=== PATIENT | female | born 1995 | race Caucasian/White ===

== ENCOUNTER 2018-01-16 01:33 | Inpatient (IN) | payer BC ==
[2018-01-16] MEDS ORDERED: Acetaminophen 325 MG Tab PO PRN (07:52)
[2018-01-16] MEDS ORDERED: Ondansetron 4 MG/2 ML SDV IVPUSH PRN (07:52)
[2018-01-16] MEDS ORDERED: Sodium Chloride 0.9% 10 ML Syringe FLUSH PRN (07:52)
[2018-01-16] MEDS ORDERED: Oxytocin/Lactated Ringers 10 UNIT/1,000 ML BAG IV SCH (08:00)
--- NOTE | 2018-01-16 08:03 | PCM.LDHP ---
L&D History of Present Illness - General Date of Service: 01/16/18 Admit Problem/Dx: Patient Status Order with Admit Dx/Problem 01/16/18 07:52 Patient Status [ADT] Routine Admission Diagnosis/Problem Admission Diagnosis/Problem 40 weeks gestation of Source of Information: Patient History Limitations: Reports: No Limitations - History of Present Illness Introduction:: Maddie Boss is a 22 year old at 40 weeks 1 day by LMP consistent with 9 week ultrasound who presents for induction of labor. Denies any significant complications and she was last seen by Dr. Ramírez her regular OB/ REGULATORY INTERN physician. She denies any leaking of fluid or vaginal bleeding. Reports she has been having normal, physiologic discharge. Reports that she does have occasional Hinds Escalante contractions but nothing regular or very painful. Reports good movement. Reports that she has been checking her blood sugars and that they have overall been normal with the occasional abnormal value. She has continued to have good control of her gestational diabetes with diet control. Present Illness Comments:: Maddie Boss is a 22-year-old at 40 weeks and 1 day by LMP consistent with 9 week ultrasound. She has had routine care with Dr. Ramírez starting at 9 weeks gestation. Her initial labs on 06/17/2017 showed a positive blood type with negative antibody screen. Rubella immune. RPR nonreactive. Hepatitis B and HIV negative. Gonorrhea and chlamydia were negative. Her hematocrit was 39.7 and hemoglobin was 13.7. Her platelets were 388. On initial ultrasound on 08/29/2017 for anatomy scan and there was noted to be an echogenic locus within the heart that was present on second ultrasound. She declined any additional genetic evaluation. Her one-hour glucose test was 184 and had a 3 hour glucose test done on 11/07/2017 with values of fasting 96, 1 hour 196, 2 hour 148, 3 hour 90. She was diagnosed with gestational diabetes based on these values and was able to be controlled using diet throughout the . Her hematocrit on 10/15/2017 was 34.6 and hemoglobin was 11.5. Her platelets were 342. She was GBS negative. She was followed through [facility] by Dr. Ramírez. She received flu vaccine on 09/10/2017 and TDaP vaccine on 11/05/2017. She plans to breast-feed after delivery and is okay with an epidural during labor. 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: Endocrine/Metabolic History: Reports: Diabetes, Gestational - Past Surgical History GI Surgical History: Reports: Appendectomy Social & Family History - Family History Family Medical History: Noncontributory - Tobacco Use Smoking Status *Q: Never Smoker - Alcohol Use Alcohol Use History: No - Recreational Drug Use Recreational Drug Use: No - Sexual History Sexual History: Reports: Single Partner H&P Review of Systems - Review of Systems: Review Of Systems: See Below General: Denies: Fever, Chills, Malaise HEENT: Denies: Headaches, Sinus Congestion, Sore Throat, Visual Changes Pulmonary: Denies: Shortness of Breath, Cough Cardiovascular: Denies: Chest Pain, Palpitations, Dyspnea on Exertion Gastrointestinal: Denies: Abdominal Pain, Constipation, Diarrhea Genitourinary: Denies: Dysuria, Frequency, Burning, Urgency Musculoskeletal: Denies: Joint Pain, Muscle Pain Skin: Denies: Rash, Lesions Psychiatric: Denies: Depression, Anxiety Neurological: Denies: Headache Hematologic/Lymphatic: Denies: Easy Bleeding, Easy Bruising L&D Exam - Exam Exam: See Below - OB Specific Contraction Intensity: Irritability Movement: Active Heart Tones: Present Heart Tones per Min: 145 (Positive accelerations, no decelerations) Heart Rate (FHR) Variability: Moderate (6-25 bmp) Presentation: Vertex (By cervical exam) Estimated Weight: 7.5 pounds by Gabriel's - Rothman Score Rothman Score Cervix Position: Midposition Rothman Score Consistency: Medium Rothman Score Effacement: 31-50% Rothman Score Dilation: 3-4 cm Rothman Score Infant's Station: -3 Rothman Score Total: 5 - Exam General: Alert, Oriented HEENT: Conjunctiva Clear, EOMI Neck: Supple, Trachea Midline Lungs: Clear to Auscultation, Normal Respiratory Effort Cardiovascular: Regular Rate, Regular Rhythm GI/Abdominal Exam: Soft, Non-Tender, No Distention, Other (Gravid). No: Guarding, Rebound Genitourinary: Normal external exam Back Exam: Full Range of Motion Extremities: Normal Inspection, Pedal Edema (1+ to mid shins in lower extremities bilaterally) Skin: Warm, Dry, Intact Psychiatric: Alert, Normal Affect, Normal Mood - Problem List (1) 40 weeks gestation of SNOMED Code(s): 46989405 ICD Code: Z3A.40 - 40 WEEKS GESTATION OF Status: Acute Current Visit: Yes (2) Gestational diabetes SNOMED Code(s): 46280340 ICD Code: O24.419 - GESTATIONAL DIABETES MELLITUS IN , UNSP CONTROL Status: Acute Current Visit: Yes (3) Abnormal ultrasonic finding on screening of mother Status: Acute Current Visit: Yes Problem List Initiated/Reviewed/Updated: Yes Orders Last 24hrs: Active Orders 24 hr Category Date Time Status Patient Status [ADT] Routine ADT 01/16/18 07:52 Ordered Activity as Tolerated [RC] PFP Care 01/16/18 07:52 Ordered Blood Glucose Check, Bedside [RC] Q4HR Care 01/16/18 07:55 Ordered Communication Order [RC] ASDIRECTED Care 01/16/18 07:52 Ordered Heart Tones [RC] ASDIRECTED Care 01/16/18 07:53 Ordered Notify Provider Vital Signs [RC] PRN Care 01/16/18 07:54 Ordered Notify Provider [RC] PFP Care 01/16/18 07:52 Ordered Notify Provider [RC] PRN Care 01/16/18 07:52 Ordered Peripheral IV Care [RC] . DIRECTED Care 01/16/18 07:53 Ordered Pump Management, Intrathecal [RC] ASDIRECTED Care 01/16/18 07:54 Ordered Urinary Catheter Assessment [RC] ASDIRECTED Care 01/16/18 07:52 Ordered Vital Signs [RC] PER UNIT ROUTINE Care 01/16/18 07:52 Ordered Clear Liquid Diet [DIET] Diet 01/16/18 Breakfast Ordered CBC W/O DIFF,HEMOGRAM [HEME] Routine Lab 01/16/18 07:52 Ordered Acetaminophen [Tylenol] Med 01/16/18 07:52 Ordered 650 mg PO Q6H PRN Lactated Ringers [Ringers, Lactated] 1,000 ml Med 01/16/18 08:00 Ordered IV ASDIRECTED Ondansetron [Zofran] Med 01/16/18 07:52 Ordered 4 mg IVPUSH Q4H PRN Oxytocin/Lactated Ringers [Pitocin in LR 10 Units/1,000 Med 01/16/18 08:00 Ordered ML] 10 unit in 1,000 ml IV .CONTINUOUS Oxytocin/Lactated Ringers [Pitocin in LR 10 Units/1,000 Med 01/16/18 08:00 Ordered ML] 10 unit in 1,000 ml IV TITRATE Sodium Chloride 0.9% [Saline Flush] Med 01/16/18 07:52 Ordered 10 ml FLUSH ASDIRECTED PRN Electronic Heart Tones Ext w TOCO [WOMSER] Ot 01/16/18 07:52 Ordered Routine Electronic Heart Tones Internal [WOMSER] Per Unit Ot 01/16/18 07:52 Ordered Routine Peripheral IV Insertion Adult [OM.PC] Routine Ot 01/16/18 07:52 Ordered Resuscitation Status Routine Resus Stat 01/16/18 07:52 Ordered Assessment/Plan Comment:: Refer to observation for elective induction of labor Start induction of labor with Pitocin and increase per unit protocol Continuous monitoring Place IV and have Lactated Ringer's at 125 ml/hr May have small amounts of regular diet and clear liquids while on Pitocin induction Activity as tolerated May have epidural as desired Check fingerstick blood glucose levels every 4 hours before active labor and check every 2 hours once in active labor. Plan to start insulin drip as indicated. Plans to breast-feed after delivery Anticipate vaginal delivery unless otherwise indicated
[2018-01-16] MEDS: Oxytocin/Lactated Ringers 10 UNIT/1,000 ML BAG IV SCH ×2 (08:25→23:40)
[2018-01-16] MEDS: Lactated Ringers 1,000 ML IV SCH ×4 (08:27→20:22)
--- NOTE | 2018-01-16 09:58 | PCM.PREANE ---
Preanesthetic Assessment - Anesthesia/Transfusion/Family Hx Anesthesia History: Prior Anesthesia Without Reaction Type of Anesthesia Reaction: Other (see below) (nausea) Family History of Anesthesia Reaction: No Transfusion History: No Prior Transfusion(s) - Review of Systems General: No Symptoms Pulmonary: No Symptoms Cardiovascular: No Symptoms Gastrointestinal: No Symptoms, Nausea (yesterday), Vomiting (yesterday) Neurological: No Symptoms Other: Reports: Diabetes (gestational) - Physical Assessment Respiratory Rate: 18 Vital Signs: Last Vital Signs Temp 98.0 F 01/16/18 07:52 Pulse 84 01/16/18 07:52 Resp 18 01/16/18 07:52 BP 136/74 01/16/18 07:52 Pulse Ox Height: 5 ft 5 in Weight: 85.729 kg ASA Class: 2 Mental Status: Alert & Oriented x3 Airway Class: Mallampati = 1 Dentition: Reports: Normal Dentition Thyro-Mental Finger Breadths: 3 Mouth Opening Finger Breadths: 3 ROM/Head Extension: Full Lungs: Clear to Auscultation, Normal Respiratory Effort Cardiovascular: Regular Rate, Regular Rhythm - Lab Values: Laboratory Last Values WBC 14.61 K/mm3 (3.98-10.04) H 01/16/18 09:10 RBC 4.41 M/mm3 (3.98-5.22) 01/16/18 09:10 Hgb 12.2 gm/L (11.2-15.7) 01/16/18 09:10 Hct 37.3 % (34.1-44.9) 01/16/18 09:10 MCV 84.6 fl (79.4-94.8) 01/16/18 09:10 MCH 27.7 pg (25.6-32.2) 01/16/18 09:10 MCHC 32.7 g/dl (32.2-35.5) 01/16/18 09:10 RDW Std Deviation 44.8 fL (36.4-46.3) 01/16/18 09:10 Plt Count 316 K/mm3 (182-369) 01/16/18 09:10 MPV 10.0 fl (9.4-12.3) 01/16/18 09:10 POC Glucose 69 mg/dL (70-105) L 01/16/18 09:03 - Allergies Allergies/Adverse Reactions: Allergies Allergy/AdvReac Type Severity Reaction Status Date / Time No Known Allergies Allergy Verified 01/16/18 07:52 - Blood Blood Available: No - Acknowledgements Anesthesia Type Planned: Epidural Pt an Appropriate Candidate for the Planned Anesthesia: Yes Alternatives and Risks of Anesthesia Discussed w Pt/Guardian: Yes Pt/Guardian Understands and Agrees with Anesthesia Plan: Yes PreAnesthesia Questionnaire Cardiovascular History: Reports: None Respiratory History: Reports: None Gastrointestinal History: Reports: GERD (little with preg) PARER History: Reports: : 1 (40 weeks) Para: 0 Endocrine/Metabolic History: Reports: Diabetes, Gestational - Past Surgical History GI Surgical History: Reports: Appendectomy - SUBSTANCE USE Smoking Status *Q: Never Smoker Tobacco Use Within Last Twelve Months: No Second Hand Smoke Exposure: No Days Per Week of Alcohol Use: 0 Recreational Drug Use History: No - HOME MEDS Home Medications: Home Meds Ferrous Sulfate [Iron] 1 tab PO DAILY 01/16/18 [History] Vits #93/Iron Fum/FA [ Formula Tablet] 1 tab PO DAILY 01/16/18 [History] - CURRENT (IN HOUSE) MEDS Current Meds: Current Medications Acetaminophen (Tylenol) 650 mg PO Q6H PRN PRN Reason: Pain (Mild 1-3) and fever Lactated Ringer's (Ringers, Lactated) 1,000 mls @ 100 mls/hr IV ASDIRECTED PENG Last Admin: 01/16/18 08:27 Dose: 100 mls/hr Oxytocin/Lactated Ringer's (Pitocin In Lr 10 Units/1,000 Ml) 10 unit in 1,000 mls @ 100 mls/hr IV .CONTINUOUS PENG Oxytocin/Lactated Ringer's (Pitocin In Lr 10 Units/1,000 Ml) 10 unit in 1,000 mls @ 12 mls/hr IV TITRATE PENG; 2 MUNITS/MIN PRN Reason: Protocol Last Admin: 01/16/18 08:25 Dose: 2 munits/min, 12 mls/hr Ondansetron HCl (Zofran) 4 mg IVPUSH Q4H PRN PRN Reason: Nausea/Vomiting Sodium Chloride (Saline Flush) 10 ml FLUSH ASDIRECTED PRN PRN Reason: Keep Vein Open
[2018-01-16] MEDS ORDERED: diphenhydrAMINE 50 MG/ML SDV IVPUSH PRN (09:59)
[2018-01-16] MEDS ORDERED: fentaNYL 100 MCG/2 ML SDV EPIDUR PRN (09:59)
[2018-01-16] MEDS ORDERED: ePHEDrine 50 MG/ML SDV IVPUSH PRN (09:59)
[2018-01-16] MEDS ORDERED: Bupivacaine/fentaNYL/NS 100 ML Bag EPIDUR SCH (10:00)
--- NOTE | 2018-01-16 18:25 | PCM.PNLD ---
Labor Progress Note - VS & Meds Vital Signs: Last Vital Signs Temp 36.7 C 01/16/18 07:52 Pulse 84 01/16/18 07:52 Resp 18 01/16/18 09:58 BP 136/74 01/16/18 07:52 Pulse Ox Active Medications: Current Medications Acetaminophen (Tylenol) 650 mg PO Q6H PRN PRN Reason: Pain (Mild 1-3) and fever Diphenhydramine HCl (Benadryl) 25 mg IVPUSH Q6H PRN PRN Reason: pruritis Ephedrine Sulfate (Ephedrine Sulfate) 5 mg IVPUSH ASDIRECTED PRN PRN Reason: Hypotension Fentanyl (Sublimaze) 100 mcg EPIDUR Q3H PRN PRN Reason: Pain Fentanyl/Bupivacaine HCl (Fentanyl/Bupivacaine/Ns 2 Mcg-0.125% 100 Ml) 100 ml EPIDUR ASDIRECTED PENG Lactated Ringer's (Ringers, Lactated) 1,000 mls @ 100 mls/hr IV ASDIRECTED PENG Last Admin: 01/16/18 16:10 Dose: 100 mls/hr Oxytocin/Lactated Ringer's (Pitocin In Lr 10 Units/1,000 Ml) 10 unit in 1,000 mls @ 100 mls/hr IV .CONTINUOUS PENG Oxytocin/Lactated Ringer's (Pitocin In Lr 10 Units/1,000 Ml) 10 unit in 1,000 mls @ 12 mls/hr IV TITRATE PENG; 2 MUNITS/MIN PRN Reason: Protocol Last Titration: 01/16/18 16:12 Dose: 18 munits/min, 108 mls/hr Ondansetron HCl (Zofran) 4 mg IVPUSH Q4H PRN PRN Reason: Nausea/Vomiting Sodium Chloride (Saline Flush) 10 ml FLUSH ASDIRECTED PRN PRN Reason: Keep Vein Open - Uterine Contractions Uterine Monitoring Mode: External [place] Contraction Frequency (min): 2-3 Contraction Duration (sec): 60 Contraction Intensity: Moderate to Strong Uterine Resting Tone: Soft - Monitoring Monitor Mode: External Ultrasound Heart Rate (FHR) Baseline: 130 Heart Rate (FHR) Variability: Moderate (6-25 bmp) Accelerations: Present, 15x15 Decelerations: None Strip Review: Category I - Vaginal Exam Dilation (cm): 4.5 Effacement (Percent): 80 Station: -3 Cervical Position: Midposition Sterile Vaginal Exam Performed By: Solomon Augustin - Labor Progress (Free Text) Labor Progress: Patient with cervical dilation to 4.5 cm. artificial rupture membranes performed with return of clear fluid. Mom and baby tolerated without difficulty. Continue with Pitocin for augmentation of labor. Patient may ambulate after reassuring monitoring. Continue to check fingerstick blood glucose levels every 4 hours until patient is 6-7 cm. At that time decreased time between checks to every 2 hours. Anticipate vaginal delivery unless otherwise indicated
[2018-01-16] MEDS ORDERED: Bupivacaine 0.25% 10 ML SDV ONE (22:22)
--- NOTE | 2018-01-17 02:17 | PCM.DEL ---
L & D Note - General Info Date of Service: 01/17/18 Mother's Due Date: 01/15/18 - Delivery Note Labor: Augmented by ARM (clear fluids with AROM), Augmented by Oxytocin, Induced by Oxytocin Delivery Outcome: Livebirth Delivery Method: Spontaneous Vaginal Delivery-Single Presentation: Direct occiput anterior Nuchal Cord: Present, Reduced (after delivery of infant) Prep: Povidone-Iodine (Betadine Anesthesia Type: Epidural Amniotic Fluid Description: Clear Episiotomy Type: None Laceration: 1st Degree, Perineal (midline) Suture type: Vicryl Suture size: 3-0 Placenta: Intact, Spontaneous Cord: 3 Vessels Estimated Blood Loss: 350 Resuscitation Needed: No : Bulb Syringe, Stimulated, Warmed, [place] Used Provider: Markus Ramírez Score 1 min: 9 Score 5 min: 9 Second Stage Interventions: Reports: Pushing Effectively, Pushing, Pulls Own Legs Back Delivery Comments (Free Text/Narrative):: Stage I: Maddie Boss was admitted for elective induction of labor. On admission her cervix was dilated to 2 cm. She was GBS negative. She was started on Pitocin for induction of labor. She had artificial rupture membranes with clear fluid. She was given an epidural for anesthesia. She had fingerstick blood glucose levels checked throughout the laboring process and she had one mildly elevated value to 133 approximately 1 hour after a meal. Other values were within normal limits. She progressed to complete and pushing. Stage II: On 01/17/2018 she had a normal vaginal delivery of a live female at 0133. Apgars of 9 and 9. Weight of 3360 g (7 lbs 7 oz). Length of 20.5 inches. There was single nuchal cord that was reduced after delivery of the . was delivered in direct occiput anterior position. The cord was doubly clamped and cut by father of . was placed on mother's abdomen. Stage III: She had a spontaneous delivery of an intact placenta in Jack presentation. Three vessel cord. She was given pitocin and fundal massage. She had a first-degree midline perineal laceration that was repaired with 3-0 Vicryl. Mom and baby were stable to recovery. EBL of 350 mL. Solomon Augustin MD 2:17 AM 01/17/2018 - Patient Data Vitals - Most Recent: Last Vital Signs Temp 36.7 C 01/16/18 07:52 Pulse 66 01/16/18 20:30 Resp 18 01/16/18 09:58 BP 117/68 01/16/18 20:30 Pulse Ox 100 01/16/18 18:53 Weight - Most Recent: 85.729 kg I&O - Last 24 Hours: Intake & Output 01/16/18 01/16/18 01/17/18 14:59 22:59 06:59 Intake Total 0 Balance 0 Lab Results Last 24 Hours: Laboratory Results - last 24 hr 01/16/18 01/16/18 01/16/18 Range/Units 09:03 09:10 13:01 WBC 14.61 H (3.98-10.04) K/mm3 RBC 4.41 (3.98-5.22) M/mm3 Hgb 12.2 (11.2-15.7) gm/L Hct 37.3 (34.1-44.9) % MCV 84.6 (79.4-94.8) fl MCH 27.7 (25.6-32.2) pg MCHC 32.7 (32.2-35.5) g/dl RDW Std Deviation 44.8 (36.4-46.3) fL Plt Count 316 (182-369) K/mm3 MPV 10.0 (9.4-12.3) fl POC Glucose 69 L 74 (70-105) mg/dL 01/16/18 01/16/18 Range/Units 17:23 20:47 WBC (3.98-10.04) K/mm3 RBC (3.98-5.22) M/mm3 Hgb (11.2-15.7) gm/L Hct (34.1-44.9) % MCV (79.4-94.8) fl MCH (25.6-32.2) pg MCHC (32.2-35.5) g/dl RDW Std Deviation (36.4-46.3) fL Plt Count (182-369) K/mm3 MPV (9.4-12.3) fl POC Glucose 133 H 82 (70-105) mg/dL Med Orders - Current: Current Medications Acetaminophen (Tylenol) 650 mg PO Q6H PRN PRN Reason: Pain (Mild 1-3) and fever Diphenhydramine HCl (Benadryl) 25 mg IVPUSH Q6H PRN PRN Reason: pruritis Ephedrine Sulfate (Ephedrine Sulfate) 5 mg IVPUSH ASDIRECTED PRN PRN Reason: Hypotension Fentanyl (Sublimaze) 100 mcg EPIDUR Q3H PRN PRN Reason: Pain Last Admin: 01/16/18 19:09 Dose: 100 mcg Fentanyl/Bupivacaine HCl (Fentanyl/Bupivacaine/Ns 2 Mcg-0.125% 100 Ml) 100 ml EPIDUR ASDIRECTED PENG Last Admin: 01/16/18 19:09 Dose: 100 ml Lactated Ringer's (Ringers, Lactated) 1,000 mls @ 100 mls/hr IV ASDIRECTED PENG Last Admin: 01/16/18 20:22 Dose: 125 mls/hr Oxytocin/Lactated Ringer's (Pitocin In Lr 10 Units/1,000 Ml) 10 unit in 1,000 mls @ 100 mls/hr IV .CONTINUOUS PENG Oxytocin/Lactated Ringer's (Pitocin In Lr 10 Units/1,000 Ml) 10 unit in 1,000 mls @ 12 mls/hr IV TITRATE PENG; 2 MUNITS/MIN PRN Reason: Protocol Last Admin: 01/16/18 23:40 Dose: 14 munits/min, 84 mls/hr Ondansetron HCl (Zofran) 4 mg IVPUSH Q4H PRN PRN Reason: Nausea/Vomiting Last Admin: 01/16/18 21:01 Dose: 4 mg Sodium Chloride (Saline Flush) 10 ml FLUSH ASDIRECTED PRN PRN Reason: Keep Vein Open - Problem List & Annotations (1) 40 weeks gestation of SNOMED Code(s): 04121453 Code(s): Z3A.40 - 40 WEEKS GESTATION OF Status: Acute Current Visit: Yes (2) Gestational diabetes SNOMED Code(s): 03931135 Code(s): O24.419 - GESTATIONAL DIABETES MELLITUS IN , UNSP CONTROL Status: Acute Current Visit: Yes (3) Abnormal ultrasonic finding on screening of mother Status: Acute Current Visit: Yes (4) Vaginal delivery SNOMED Code(s): 458832864 Code(s): O80 - ENCOUNTER FOR FULL-TERM UNCOMPLICATED DELIVERY Status: Acute Current Visit: Yes (5) First degree laceration of perineum, delivered, current hospitalization SNOMED Code(s): 724887699 Code(s): O70.0 - FIRST DEGREE PERINEAL LACERATION DURING DELIVERY Status: Acute Current Visit: Yes - Problem List Review Problem List Initiated/Reviewed/Updated: Yes - My Orders Last 24 Hours: My Active Orders 01/16/18 07:52 Patient Status [ADT] Routine Activity as Tolerated [RC] PFP Communication Order [RC] ASDIRECTED Notify Provider [RC] PFP Notify Provider [RC] PRN Urinary Catheter Assessment [RC] ASDIRECTED Vital Signs [RC] PER UNIT ROUTINE Acetaminophen [Tylenol] 650 mg PO Q6H PRN Ondansetron [Zofran] 4 mg IVPUSH Q4H PRN Sodium Chloride 0.9% [Saline Flush] 10 ml FLUSH ASDIRECTED PRN Electronic Heart Tones Ext w TOCO [WOMSER] Routine Electronic Heart Tones Internal [WOMSER] Per Unit Routine Peripheral IV Insertion Adult [OM.PC] Routine Resuscitation Status Routine 01/16/18 07:53 Heart Tones [RC] ASDIRECTED Peripheral IV Care [RC] Q2HR 01/16/18 07:54 Notify Provider Vital Signs [RC] PRN 01/16/18 07:55 Blood Glucose Check, Bedside [RC] Q4HR 01/16/18 08:00 Lactated Ringers [Ringers, Lactated] 1,000 ml IV ASDIRECTED Oxytocin/Lactated Ringers [Pitocin in LR 10 Units/1,000 ML] 10 unit in 1,000 ml IV .CONTINUOUS Oxytocin/Lactated Ringers [Pitocin in LR 10 Units/1,000 ML] 10 unit in 1,000 ml IV TITRATE 01/16/18 Breakfast Clear Liquid Diet [DIET] 01/16/18 Lunch Regular Diet [DIET] 01/17/18 02:05 Patient Status Manage Transfer [TRANSFER] Routine - Plan Plan:: Admit to inpatient following normal spontaneous vaginal delivery Continue Pitocin per protocol Continue IV fluids until patient tolerating regular diet and normal amount of fluid intake Patient plans to breast-feed, assist as needed Continue to monitor vital signs Continue to monitor lochia Patient may ambulate as tolerated Regular diet. Patient with gestational diabetes that was diet-controlled, no fingerstick glucose at this time. Patient will need a 2 hour glucose tolerance test at approximately 6 weeks after delivery Anticipate discharge home in 1-2 days
[2018-01-17] MEDS ORDERED: Magnesium Hydroxide 400 MG/5 ML Susp 30 ML Cup PO PRN (03:24)
[2018-01-17] MEDS ORDERED: Lanolin 100% Cream 7 GM Tube TOP PRN (03:24)
[2018-01-17] MEDS ORDERED: Witch Hazel Medicated Pads 100/Jar TOP PRN (03:24)
[2018-01-17] MEDS ORDERED: Acetaminophen 325 MG Tab PO PRN (03:24)
[2018-01-17] MEDS ORDERED: Oxytocin/Lactated Ringers 10 UNIT/1,000 ML BAG IV SCH (03:24)
[2018-01-17] MEDS ORDERED: Hydrocortisone Acetate 25 MG Supp RECTAL PRN (03:24)
[2018-01-17] MEDS ORDERED: Docusate Sodium 100 MG Cap PO PRN (03:24)
[2018-01-17] MEDS ORDERED: Lactated Ringers 1,000 ML IV SCH (03:24)
[2018-01-17] MEDS ORDERED: Simethicone 80 MG Tab.Chew PO PRN (03:24)
[2018-01-17] MEDS ORDERED: Benzocaine/Menthol 20%-0.5% Spray 56 GM Canister TOP PRN (03:24)
[2018-01-17] MEDS: Ibuprofen 600 MG Tab PO PRN ×3 (03:45→19:22)
--- NOTE | 2018-01-17 06:36 | PCM48HPAN ---
Post Anesthesia Note - EVALUATION WITHIN 48HRS OF ANESTHETIC Vital Signs in Normal Range: Yes Patient Participated in Evaluation: Yes Respiratory Function Stable: Yes Airway Patent: Yes Cardiovascular Function Stable: Yes Hydration Status Stable: Yes Pain Control Satisfactory: Yes Nausea and Vomiting Control Satisfactory: Yes Mental Status Recovered: Yes
[2018-01-17] MEDS: Prenatal Multivitamin with Calcium/Folic Acid/Iron Tab PO SCH (11:34)
[2018-01-18] MEDS: Ibuprofen 600 MG Tab PO PRN ×2 (04:20→14:48)
--- NOTE | 2018-01-18 08:03 | PCM.DCSUM1 ---
Discharge Summary - Hospital Course Brief History: Admitted in labor - Discharge Data Discharge Date: 01/18/18 Discharge Disposition: Home, Self-Care 01 Condition: Good - Patient Summary/Data Hospital Course: Stage I: Maddie Boss was admitted for elective induction of labor. On admission her cervix was dilated to 2 cm. She was GBS negative. She was started on Pitocin for induction of labor. She had artificial rupture membranes with clear fluid. She was given an epidural for anesthesia. She had fingerstick blood glucose levels checked throughout the laboring process and she had one mildly elevated value to 133 approximately 1 hour after a meal. Other values were within normal limits. She progressed to complete and pushing. Stage II: On 01/17/2018 she had a normal vaginal delivery of a live female at 0133. Apgars of 9 and 9. Weight of 3360 g (7 lbs 7 oz). Length of 20.5 inches. There was single nuchal cord that was reduced after delivery of the infant. Infant was delivered in direct occiput anterior position. The cord was doubly clamped and cut by father of . was placed on mother's abdomen. Stage III: She had a spontaneous delivery of an intact placenta in Jack presentation. Three vessel cord. She was given pitocin and fundal massage. She had a first-degree midline perineal laceration that was repaired with 3-0 Vicryl. Mom and baby were stable to recovery. EBL of 350 mL. - Patient Instructions Diet: Usual Diet as Tolerated Activity: No Strenuous Activities Driving: May Drive Today Showering/Bathing: May Shower Wound/Incision Care: Keep Operative Site/Wound Site Clean and Dry Notify Provider of: Fever, Increased Pain, Swelling and Redness, Drainage, Nausea and/or Vomiting - Discharge Plan Home Medications: Home Meds Ferrous Sulfate [Iron] 1 tab PO DAILY 01/16/18 [History] Vits #93/Iron Fum/FA [ Formula Tablet] 1 tab PO DAILY 01/16/18 [History] Referrals: Solomon Augustin MD [Primary Care Provider] - (2 weeks) - Discharge Summary/Plan Comment DC Time >30 min.: No - General Info Date of Service: 01/18/18 Functional Status: Reports: Pain Controlled - Review of Systems General: Reports: No Symptoms HEENT: Reports: No Symptoms Pulmonary: Reports: No Symptoms Cardiovascular: Reports: No Symptoms Gastrointestinal: Reports: No Symptoms Genitourinary: Reports: No Symptoms Musculoskeletal: Reports: No Symptoms Skin: Reports: No Symptoms Neurological: Reports: No Symptoms Psychiatric: Reports: No Symptoms - Patient Data Vitals - Most Recent: Last Vital Signs Temp 36.5 C 01/18/18 04:39 Pulse 69 01/18/18 04:39 Resp 18 01/18/18 05:09 BP 135/77 01/18/18 04:39 Pulse Ox 99 01/18/18 04:39 Weight - Most Recent: 85.729 kg I&O - Last 24 hours: Intake & Output 01/17/18 01/18/18 01/18/18 22:59 06:59 14:59 Intake Total 0 Balance 0 Med Orders - Current: Current Medications Acetaminophen (Tylenol) 650 mg PO Q6H PRN PRN Reason: mild pain or fever Last Admin: 01/17/18 16:40 Dose: 650 mg Benzocaine/Menthol (Dermoplast Pain Relief [place]) 0 gm TOP ASDIRECTED PRN PRN Reason: Perineal Comfort Measure Last Admin: 01/17/18 03:44 Dose: 1 canister Docusate Sodium (Colace) 100 mg PO BID PRN PRN Reason: Constipation Last Admin: 01/17/18 19:22 Dose: 100 mg Emollient Ointment (Lansinoh Hpa) 0 gm TOP ASDIRECTED PRN PRN Reason: Sore Nipples Last Admin: 01/17/18 19:23 Dose: 1 tube Hydrocortisone Acetate (Anucort-Hc) 25 mg RECTAL BID PRN PRN Reason: Hemorrhoid pain Lactated Ringer's (Ringers, Lactated) 1,000 mls @ 125 mls/hr IV ASDIRECTED PENG Oxytocin/Lactated Ringer's (Pitocin In Lr 10 Units/1,000 Ml) 10 unit in 1,000 mls @ 100 mls/hr IV TITRATE PENG PRN Reason: Protocol Ibuprofen (Motrin) 600 mg PO Q6H PRN PRN Reason: Mild pain or fever Last Admin: 01/18/18 04:20 Dose: 600 mg Magnesium Hydroxide (Milk Of Magnesia) 30 ml PO BEDTIME PRN PRN Reason: Constipation Prenat Multivit/[place]/Iron/Folic Ac ( Plus Iron) 1 each PO DAILY [facility] Last Admin: 01/17/18 11:34 Dose: Not Given Simethicone (Simethicone) 80 mg PO Q4H PRN PRN Reason: Gas Witch Michelle (Tucks) 1 pad TOP ASDIRECTED PRN PRN Reason: Hemorrhoid pain Last Admin: 01/17/18 03:44 Dose: 1 container Discontinued Medications Acetaminophen (Tylenol) 650 mg PO Q6H PRN PRN Reason: Pain (Mild 1-3) and fever Bupivacaine HCl (Sensorcaine-Mpf 0.25%) 10 ml .ROUTE .[facility] ONE Stop: 01/16/18 22:23 Diphenhydramine HCl (Benadryl) 25 mg IVPUSH Q6H PRN PRN Reason: pruritis Ephedrine Sulfate (Ephedrine Sulfate) 5 mg IVPUSH ASDIRECTED PRN PRN Reason: Hypotension Fentanyl (Sublimaze) 100 mcg EPIDUR Q3H PRN PRN Reason: Pain Last Admin: 01/16/18 19:09 Dose: 100 mcg Fentanyl/Bupivacaine HCl (Fentanyl/Bupivacaine/Ns 2 Mcg-0.125% 100 Ml) 100 ml EPIDUR ASDIRECTED PENG Last Admin: 01/16/18 19:09 Dose: 100 ml Lactated Ringer's (Ringers, Lactated) 1,000 mls @ 100 mls/hr IV ASDIRECTED PENG Last Admin: 01/16/18 20:22 Dose: 125 mls/hr Oxytocin/Lactated Ringer's (Pitocin In Lr 10 Units/1,000 Ml) 10 unit in 1,000 mls @ 100 mls/hr IV .CONTINUOUS PENG Oxytocin/Lactated Ringer's (Pitocin In Lr 10 Units/1,000 Ml) 10 unit in 1,000 mls @ 12 mls/hr IV TITRATE PENG; 2 MUNITS/MIN PRN Reason: Protocol Last Admin: 01/16/18 23:40 Dose: 14 munits/min, 84 mls/hr Ondansetron HCl (Zofran) 4 mg IVPUSH Q4H PRN PRN Reason: Nausea/Vomiting Last Admin: 01/16/18 21:01 Dose: 4 mg Sodium Chloride (Saline Flush) 10 ml FLUSH ASDIRECTED PRN PRN Reason: Keep Vein Open - Exam General: Reports: Alert, Oriented HEENT: Reports: Pupils Equal, Pupils Reactive, EOMI, Mucous Membr. Moist/[place] Neck: Reports: Supple Lungs: Reports: Clear to Auscultation, Normal Respiratory Effort Cardiovascular: Reports: Regular Rate, Regular Rhythm GI/Abdominal Exam: Normal Bowel Sounds, Soft, Non-Tender, No Organomegaly, No Distention, No Abnormal Bruit, No Mass, Pelvis Stable (Female) Exam: Normal External Exam, Normal Speculum Exam, Normal Bimanual Exam Back Exam: Reports: Normal Inspection, Full Range of Motion Extremities: Normal Inspection, Normal Range of Motion, Non-Tender, No Pedal Edema, Normal Capillary Refill Skin: Reports: Warm, Dry, Intact Wound/Incisions: Reports: Healing Well Neurological: Reports: No New Focal Deficit Psy/Mental Status: Reports: Alert, Normal Affect, Normal Mood *Q Meaningful Use (DIS) - VTE *Q VTE Criteria *Q: - Stroke *Q Stroke Criteria *Q: - AMI *Q AMI Criteria *Q:
[2018-01-18] MEDS: Prenatal Multivitamin with Calcium/Folic Acid/Iron Tab PO SCH (11:21)
== END 2018-01-18 16:00 | disposition home or self-care (01) | DRG 560 ==
LOC: JD.OB 01:33 → OBSVTOIN 01-17 01:33
PROVIDERS: ADMIT Obstetrics & Gynecology; ATTEND Obstetrics & Gynecology
PROC: 10E0XZZ Delivery of Products of Conception, External Approach (ICD-10-PCS; principal; 2018-01-17)
PROC: 3E033VJ Introduction of Other Hormone into Peripheral Vein, Percutaneous Approach (ICD-10-PCS; 2018-01-17)
PROC: 10907ZC Drainage of Amniotic Fluid, Therapeutic from Products of Conception, Via Natural or Artificial Opening (ICD-10-PCS; 2018-01-17)
PROC: 0HQ9XZZ Repair Perineum Skin, External Approach (ICD-10-PCS; 2018-01-17)
PROC: 00HU33Z Insertion of Infusion Device into Spinal Canal, Percutaneous Approach (ICD-10-PCS; 2018-01-17)
PROC: 3E0R3BZ Introduction of Anesthetic Agent into Spinal Canal, Percutaneous Approach (ICD-10-PCS; 2018-01-17)
DX: O24.429 Gestational diabetes mellitus in childbirth, unspecified control (principal); Z3A.40 40 weeks gestation of pregnancy; Z37.0 Single live birth; O70.0 First degree perineal laceration during delivery; O69.81X0 Labor and delivery complicated by cord around neck, without compression, not applicable or unspecified
CPT/HCPCS: 36415; 51702; 59300; 59409; 82962; 85027; A9270-GY; J2405; J2590; J3010; J7120